=== PATIENT | female | born 1960 ===

== ENCOUNTER 2017-01-19 20:45 | Inpatient (IN) | payer OTHER ==
[~2017-01-19] VITALS: Ht 160 cm; Wt 54.2 kg
[2017-01-19] MEDS ORDERED: SODIUM CHLORIDE 0.9% FLUSH 10 ML FLUSH IV FLUSH PRN (21:00)
[2017-01-19] MEDS ORDERED: SENNOSIDES 8.6 MG TAB PO PRN (21:00)
[2017-01-19] MEDS ORDERED: ACETAMINOPHEN 325 MG TAB PO PRN (21:00)
[2017-01-19] MEDS ORDERED: NALOXONE HCL 0.4 MG/ML AMP IV PRN (21:00)
[2017-01-19] MEDS ORDERED: ONDANSETRON HCL 4 MG/2 ML VIAL IVP PRN (21:00)
[2017-01-19] MEDS: PIPERACIL-TAZO 3.375 GM PREMIX 50 ML IV SCH (21:00)
[2017-01-19] MEDS: SODIUM CHLORIDE 0.9% FLUSH 10 ML FLUSH IV FLUSH SCH (21:00)
[2017-01-19 21:18] VITALS: BP 142/84; PULSE 73; RESP 20; TEMP 97.9; O2SAT 99
[2017-01-19] MEDS ORDERED: CHLORHEXIDINE GLUCONATE 2 % 1 PACK (2 CLOTHS) TOPICAL PRN (23:45)
[2017-01-19] MEDS ORDERED: POVIDONE IODINE 5% (ANTISEPSIS KIT) 4 APPLICATIONS EACH NARE PRN (23:45)
[2017-01-19] MEDS ORDERED: LACTATED RINGER'S 1000 ML IV PRN (23:45)
[2017-01-20] VITALS: BP 133/82; PULSE 70; RESP 20; TEMP 98.2; O2SAT 98
--- NOTE | 2017-01-20 02:15 | HHI.HP ---
[facility]Staff Admission Diagnosis Abdominal mass . Diagnoses: (1) Abdominal mass Chief Complaint: painful abdominal mass Travel History International Travel<30 Days: No Contact w/Intl Traveler <30 Da: No Traveled to Known Affected Are: No History of Present Illness Ms. Pryor is an extremely pleasant 56 year-old patient with no significant medical history who presented to the [place] ER on 01/19/17 with a 3 month history of painful left lower abdominal mass. She had been seen at an urgent care clinic 3 weeks prior and placed on clindamycin with no resolution. The ER physician thought the patient might have an abscess and attempted to I&D it but was unable to get anything more than blood from the mass. He sent for wound culture. The patient was transferred here to [facility] in [place]. A CT of the abdomen/pelvis in [facility] and showed large left inguinal/mons pubis region lobulated mass with concern for neoplasm such as soft tissue sarcoma or metastatic adenopathy. Infectious or inflammatory adenopathy such as lymphoma granuloma venereum is conceivable, according to the radiologist. Findings were thought to not be typical of abscess. Acute abnormality was seen within the abdominal cavity. According to the patient's RN, Dr. Coyle evaluated the patient upon arrival here at [facility]. He had initially planned to perform an I&D in the OR but after seeing the patient and reviewing the abdomen/pelvis CT, he decided the patient should have a biopsy by interventional radiology on Sunday for tissue diagnosis. The patient is seen in her hospital room with her and 2 adult children at the bedside. The patient reports that she has had this mass in her left inguinal area for 3 months. It started out small and has progressively gotten bigger and more painful. The pain became unbearable yesterday and she presented to the emergency room for treatment. She had been placed on antibiotics 3 weeks ago at an urgent care clinic but the mass continued to get progressively larger and more painful despite treatment. There is a family history of sarcoma - the patient's son. She denies any recent fever, chills, cough, chest pain, shortness of breath, nausea, vomiting, diarrhea, dysuria, or hematuria. She denies any recent weight loss or decrease in appetite. She denies any history of hypertension, diabetes mellitus, coronary artery disease, respiratory problems, liver or kidney problems, seizures, thyroid dysfunction, blood clots in her legs or lungs, CVA, or cancer. Review of Systems Except as stated in HPI: all other systems reviewed are Neg Past Family Social History Past Medical History Right shoulder arthritis . Past Surgical History 28 years ago . Reported Medications The patient denies taking any medications. . Allergies: Coded Allergies: No Known Allergies (Unverified , 01/19/17) Active Ordered Medications Current Medications Piperacillin Sod/ Tazobactam Sod (Zosyn 3.375 Gm Premix) 50 ml @ 100 mls/hr Q6H IV ; Start 01/19/17 at 21:00 Sodium Chloride (NS Flush) 2 ml UNSCH PRN IV FLUSH FLUSH AFTER USING IV ACCESS ; Start 01/19/17 at 21:00 Sodium Chloride (NS Flush) 2 ml BID IV FLUSH Last administered on 01/19/17t 21: 00; Start 01/19/17 at 21:00 Acetaminophen (Tylenol) 650 mg Q4H PRN PO TEMP > 100.4; Start 01/19/17 at 21:00 Ondansetron HCl (Zofran Inj) 4 mg Q6H PRN IVP NAUSEA OR VOMITING; Start at 21:00 Sennosides (Senokot) 17.2 mg Q12H PRN PO CONSTIPATION; Start 01/19/17 at 21:00 Naloxone HCl 0.4 mg 0.4 mg UNSCH PRN IV SEE LABEL COMMENTS; Start 01/19/17 at 21:00 Lactated Ringer's (Lr 1000 ml Inj) 1,000 ml @ 30 mls/hr Q24H PRN IV SEE LABEL COMMENTS; Start 01/19/17 at 23:45; Stop 01/22/17 at 23:44 Povidone Iodine (Betadine 5% Antisepsis Kit) 1 applic STRENGTH AND CONDITIONING COACH PRN EACH NARE SEE LABEL COMMENTS; Start 01/19/17 at 23:45; Stop 01/22/17 at 23:44 Chlorhexidine Gluconate (Chlorhexidine 2% Cloth) 3 pack STRENGTH AND CONDITIONING COACH PRN TOPICAL SEE LABEL COMMENTS; Start 01/19/17 at 23:45; Stop 01/22/17 at 23:44 . Family History Mother and father are in their 80s are alive and well with no medical problems Son had sarcoma 5 years ago . Social History Tobacco: Denies Alcohol: Denies Illicit Drugs: Denies . Physical Exam Vital Signs Vital Signs Date Time Temp Pulse Resp B/P Pulse Ox O2 Delivery O2 Flow Rate FiO2 01/20/17 00:00 98.2 70 20 133/82 98 01/19/17 21:18 97.9 73 20 142/84 99 Physical Exam GENERAL: This is a well-nourished, well-developed patient, in no apparent distress. SKIN: No rashes or ecchymoses. Cool and dry. Left lower abdominal mass, firm, baseball-sized, tender to palpation and located in the inguinal region. HEAD: Atraumatic. Normocephalic. EYES: No scleral icterus. No injection or drainage. ENT: Nose without bleeding, purulent drainage. NECK: Trachea midline. No JVD or lymphadenopathy. CARDIOVASCULAR: Regular rate and rhythm without murmurs, gallops, or rubs. RESPIRATORY: Clear to auscultation. Breath sounds equal bilaterally. No wheezes , rales, or rhonchi. GASTROINTESTINAL: Abdomen soft, non-tender, nondistended. No guarding. MUSCULOSKELETAL: Extremities without clubbing, cyanosis, or edema. No calf tenderness. NEUROLOGICAL: Awake and alert. Motor and sensory grossly within normal limits. Normal speech. . Laboratory Brought forward from [place] ER visit dated 01/19/17: Laboratory Tests Test 01/19/17 01/19/17 17:35 18:15 White Blood Count 6.8 TH/MM3 Red Blood Count 4.60 MIL/MM3 Hemoglobin 13.5 GM/DL Hematocrit 39.5 % Mean Corpuscular Volume 85.9 FL Mean Corpuscular Hemoglobin 29.3 PG Mean Corpuscular Hemoglobin 34.2 % Concent Red Cell Distribution Width 12.1 % Platelet Count 333 TH/MM3 Mean Platelet Volume 9.4 FL Neutrophils (%) (Auto) 50.9 % Lymphocytes (%) (Auto) 37.1 % Monocytes (%) (Auto) 7.2 % Eosinophils (%) (Auto) 4.3 % Basophils (%) (Auto) 0.4 % Neutrophils # (Auto) 3.5 TH/MM3 Lymphocytes # (Auto) 2.5 TH/MM3 Monocytes # (Auto) 0.5 TH/MM3 Eosinophils # (Auto) 0.3 TH/MM3 Basophils # (Auto) 0.0 TH/MM3 CBC Comment DIFF FINAL Differential Comment Sodium Level 140 MEQ/L Potassium Level 3.6 MEQ/L Chloride Level 103 MEQ/L Carbon Dioxide Level 28.0 MEQ/L Anion Gap 9 MEQ/L Blood Urea Nitrogen 14 MG/DL Creatinine 0.80 MG/DL Estimat Glomerular Filtration 74 ML/MIN Rate Random Glucose 92 MG/DL Calcium Level 9.2 MG/DL Lactic Acid Level 0.7 mmol/L Imaging Brought forward from [place] ER visit dated 01/19/17: Last Impressions Abdomen/Pelvis CT 01/19/17 0000 Signed Impressions: Service Date/Time: Thursday, January 19, 2017 19:34 - CONCLUSION: Large left inguinal/mons pubis region lobulated mass as above of concern for neoplasm such as soft tissue sarcoma or metastatic adenopathy. Infectious or inflammatory adenopathy such as lymphoma granuloma venereum conceivable. Hematoma considered less likely. Findings are not typical of abscess. No acute abnormality is seen within the abdominal cavity. Bertin Rosenberg MD Assessment and Plan Problem List: (1) Abdominal mass ICD Code: R19.00 Status: Acute Assessment and Plan Abdominal Mass - carcinoma vs hematoma vs abscess - Dr. Coyle consulted - per nursing, he wants IR to do a biopsy on Sunday - Zosyn 3.375 mg IV q6h - patient and family do not want to wait until Sunday in the hospital and are asking if they can go home in the morning; this will need to be discussed with the medical team in the morning - consult case management to assist with discharge planning/medical follow up DVT prophylaxis - SCDs Discussed Condition With Dr. Yulia RN, patient, patient's , and patient's daughter . Physician Certification 2 Midnight Certification Type: Admission for Inpatient Services Order for Inpatient Services The services are ordered in accordance with Medicare regulations or non- Medicare payer requirements, as applicable. In the case of services not specified as inpatient-only, they are appropriately provided as inpatient services in accordance with the 2-midnight benchmark. Estimated LOS (days): 3 days is the estimated time the patient will need to remain in the hospital, assuming treatment plan goals are met and no additional complications. Post-Hospital Plan: Not yet determined Problem Qualifiers (1) Abdominal mass: Qualified Code: R19.04 - Left lower quadrant abdominal mass Marleny Arnett January 20, 2017 02:15 Barb Bender MD January 20, 2017 06:23
[2017-01-20] MEDS: PIPERACIL-TAZO 3.375 GM PREMIX 50 ML IV SCH ×3 (02:44→15:38)
[2017-01-20 04:30] LABS: AUTOMATED NEUTROPHIL # 4.1 TH/MM3 (1.8-7.7); BASOPHIL % 0.4 % (0.0-2.0); EOSINOPHIL # 0.2 TH/MM3 (0-0.4); EOSINOPHIL % 2.8 % (0.0-4.0); HEMATOCRIT 40.4 % (35.0-46.0); HEMO FLAGS DIFF FINAL; LYMPH % 21.2 % (9.0-44.0); LYMPHOCYTE # 1.3 TH/MM3 (1.0-4.8); MEAN CELL VOLUME 85.5 FL (80.0-100.0); MEAN CORPUSCULAR HEMOGLOBIN 28.8 PG (27.0-34.0); MEAN CORPUSCULAR HGB CONC 33.7 % (32.0-36.0); MONO % 8.3 % (0.0-8.0); NEUT % 67.3 % (16.0-70.0); PLATELET COUNT 302 TH/MM3 (150-450); RED BLOOD COUNT 4.72 MIL/MM3 (4.00-5.30); RED CELL DISTRIBUTION WIDTH 12.7 % (11.6-17.2); WHITE BLOOD COUNT 6.2 TH/MM3 (4.0-11.0)
[2017-01-20 05:04] LABS: BICARBONATE 24.9 MEQ/L (21.0-32.0); POTASSIUM 3.2 MEQ/L (3.5-5.1)
[2017-01-20 08:00] VITALS: BP 112/69; PULSE 94; RESP 16; TEMP 98.1; O2SAT 96
[2017-01-20] MEDS ORDERED: NORC5TAB PO (08:31)
[2017-01-20] MEDS: SODIUM CHLORIDE 0.9% FLUSH 10 ML FLUSH IV FLUSH SCH ×2 (08:31→21:05)
--- NOTE | 2017-01-20 08:52 | MB ---
cc: RAY GRHAAM M.D. DATE OF CONSULTATION: 01/19/2017 REASON FOR CONSULTATION "Abscess." HISTORY OF PRESENT ILLNESS The patient is a very pleasant 56-year-old female with a two-month history of progressively increasing pain in the left groin area. This has been slowly increasing in size. PAST MEDICAL HISTORY The patient denies any other medical history. PAST SURGICAL HISTORY x2. SOCIAL HISTORY She drinks an occasional glass of wine, does not smoke or use other substances. ALLERGIES She has no known allergies. MEDICATIONS She is taking no medications. REVIEW OF SYSTEMS The review of systems is negative except for the large swelling over the left lower abdominal skin wall near the groin. PHYSICAL EXAMINATION GENERAL: Physical exam reveals an female in no acute distress. VITAL SIGNS: BP 154/93, pulse 81, respirations 18, temperature 98.3, 100% saturation on room air. HEENT: Sclera anicteric. Pupils reactive. CHEST: Clear to auscultation. CARDIAC: Regular rate and rhythm. ABDOMEN: Soft and nontender. There is an approximately 6-7 cm mass in the left groin area above the groin crease. This is firm, fixed and minimally tender. There is no overlying redness and no fluctuance. EXTREMITIES: Pulses are present throughout. NEUROLOGIC: Nonfocal. LABORATORY WBC is 6.8. Chemistries are essentially within normal limits except for slightly decreased GFR. IMAGING Imaging demonstrates a 4.9 x 6.1 cm mass in the left inguinal and mons pubis region. This appears to be a soft tissue mass, not typical of an abscess. The area was lanced by the physician in the emergency department and the patient and report a small amount of bloody fluid was obtained and no purulence. ASSESSMENT Left groin mass, most likely neoplastic. RECOMMENDATIONS Would recommend core biopsy be obtained before proceeding in case the patient has a sarcoma so as not to violate any tissue planes. Performing any surgery tonight would be hazardous and ill-advised. We will follow with you and after definitive diagnosis is obtained will proceed accordingly. If the patient desires discharge to have work-up as an outpatient, this would be acceptable from a surgical standpoint. MD ABHILASH Marie/SAHARA /12:40 AM /8:40 AM
[2017-01-20 12:00] VITALS: BP 119/69; PULSE 67; RESP 16; TEMP 96; O2SAT 98
--- NOTE | 2017-01-20 15:03 | HHI.PR ---
Subjective Subjective Notes feels fine, wants to shower. Objective Vitals/I&O Vital Signs Date Time Temp Pulse Resp B/P Pulse Ox O2 Delivery O2 Flow Rate FiO2 01/20/17 12:00 96.0 67 16 119/69 98 Labs Laboratory Tests Test 01/20/17 03:01 White Blood Count 6.2 Red Blood Count 4.72 Hemoglobin 13.6 Hematocrit 40.4 Mean Corpuscular Volume 85.5 Mean Corpuscular Hemoglobin 28.8 Mean Corpuscular Hemoglobin 33.7 Concent Red Cell Distribution Width 12.7 Platelet Count 302 Mean Platelet Volume 8.2 Neutrophils (%) (Auto) 67.3 Lymphocytes (%) (Auto) 21.2 Monocytes (%) (Auto) 8.3 Eosinophils (%) (Auto) 2.8 Basophils (%) (Auto) 0.4 Neutrophils # (Auto) 4.1 Lymphocytes # (Auto) 1.3 Monocytes # (Auto) 0.5 Eosinophils # (Auto) 0.2 Basophils # (Auto) 0.0 CBC Comment DIFF FINAL Differential Comment Sodium Level 140 Potassium Level 3.2 Chloride Level 104 Carbon Dioxide Level 24.9 Anion Gap 11 Blood Urea Nitrogen 8 Creatinine 0.73 Estimat Glomerular Filtration 82 Rate Random Glucose 120 Calcium Level 8.9 Narrative Exam palpable firm L groin mass with no erythema. Bandage from outside hospital removed, No drainage, I and D cut clean. bandaid placed. A/P Assessment and Plan L groin solid mass. I ordered US guided core biopsy. OK to shower. Fareed Reyes MD January 20, 2017 15:03
--- NOTE | 2017-01-20 15:48 | EKG ---
Date Performed: 01/19/2017 Time Performed: 23:23:32 PTAGE: 56 years EKG: Sinus rhythm NORMAL ECG NO PREVIOUS TRACING DOCTOR: Sunshine Núñez Interpretating Date/Time 01/20/2017 15:45:57
[2017-01-20 16:00] VITALS: BP 111/75; PULSE 71; RESP 17; TEMP 97.5; O2SAT 96
[2017-01-20 20:00] VITALS: BP 97/66; PULSE 62; RESP 20; TEMP 98.3; O2SAT 98
[2017-01-21] VITALS: BP 94/66; PULSE 67; RESP 20; TEMP 97.6; O2SAT 99
[2017-01-21 08:00] VITALS: BP 110/77; PULSE 62; RESP 16; TEMP 96.9; O2SAT 99
[2017-01-21] MEDS: SODIUM CHLORIDE 0.9% FLUSH 10 ML FLUSH IV FLUSH SCH ×2 (08:15→21:00)
--- NOTE | 2017-01-21 11:10 | HHI.PR ---
Subjective Remarks Follow-up for left groin solid mass. Patient is currently doing well. No fever or chills. Waiting for ultrasound guided biopsy. Objective Vitals Vital Signs Date Time Temp Pulse Resp B/P Pulse Ox O2 Delivery O2 Flow Rate FiO2 01/21/17 08:00 96.9 62 16 110/77 99 01/21/17 00:00 97.6 67 20 94/66 99 01/20/17 20:00 98.3 62 20 97/66 98 01/20/17 16:00 97.5 71 17 111/75 96 01/20/17 12:00 96.0 67 16 119/69 98 I/O 01/20/17 01/20/17 01/20/17 01/21/17 01/21/17 01/21/17 07:00 15:00 23:00 07:00 15:00 23:00 Intake Total 100 ml 240 ml 240 ml 240 ml Output Total 2 ml Balance 100 ml 240 ml 240 ml 238 ml Intake Oral 0 ml 240 ml 240 ml 240 ml IV Total 100 ml Output Urine Total 2 ml # Voids 2 3 3 # Bowel Movements 0 Result Diagram: 01/20/17 0301 01/20/17 0301 Objective Remarks GENERAL: Alert, oriented 3, NAD. SKIN: Warm and dry. HEAD: Normocephalic. EYES: No scleral icterus. No injection or drainage. NECK: Supple, trachea midline. No JVD or lymphadenopathy. CARDIOVASCULAR: Regular rate and rhythm without murmurs, gallops, or rubs. RESPIRATORY: Breath sounds equal bilaterally. No accessory muscle use. GASTROINTESTINAL: Abdomen soft, non-tender, nondistended. Left groin area solid mass palpated, tender to palpation. MUSCULOSKELETAL: No cyanosis, or edema. BACK: Nontender without obvious deformity. No CVA tenderness. Procedures None A/P Problem List: (1) Left groin mass ICD Code: R19.09 Status: Acute Assessment and Plan Ms. Pryor is an extremely pleasant 56 year-old patient with no significant medical history who presented to the [place] ER on 01/19/17 with a 3 month history of painful left lower abdominal mass. She had been seen at an urgent care clinic 3 weeks prior and placed on clindamycin with no resolution. The ER physician thought the patient might have an abscess and attempted to I&D it but was unable to get anything more than blood from the mass. He sent for wound culture. The patient was transferred here to [facility] in [place]. General surgery evaluated patient and ordered US guided core biopsy. - Left groin mass - US guided core biopsy pending. - Acetaminophen, Tramadol PRN for pain. - Patient can likely go home after biopsy. - Will ask CM to look into Patient's assistance - mainly so that patient can follow up. Full code. SCDs. Ambulation. Juan Carroll DO January 21, 2017 11:10 am
[2017-01-21 12:00] VITALS: BP 116/75; PULSE 65; RESP 17; TEMP 96.9; O2SAT 99
[2017-01-21] MEDS ORDERED: traMADol HCL 50 MG TAB PO PRN (12:00)
[2017-01-21 16:00] VITALS: BP 120/80; PULSE 77; RESP 20; TEMP 97.1; O2SAT 100
[2017-01-21 20:00] VITALS: BP 130/80; PULSE 63; RESP 20; TEMP 97.8; O2SAT 98
--- NOTE | 2017-01-21 20:35 | HHI.PR ---
Subjective Subjective Notes No complaints; anxious to get biopsy done Objective Vitals/I&O Vital Signs Date Time Temp Pulse Resp B/P Pulse Ox O2 Delivery O2 Flow Rate FiO2 01/21/17 16:00 97.1 77 20 120/80 100 Lungs: Clear Abdomen: Non-distended, Non-tender Narrative Exam Mass unchanged A/P Problem List: (1) Left groin mass Assessment and Plan Core biopsy tomorrow; will proceed depending on findings. Expect it is neoplastic Umberto Coyle MD January 21, 2017 20:35
[2017-01-22] VITALS (7 sets, daily range): BP systolic 108–128; BP diastolic 74–81; PULSE 16–73; RESP 14–20; TEMP 97.5–99.1; O2SAT 96–99
--- NOTE | 2017-01-22 07:36 | HHI.PR ---
Subjective Remarks In the chair. Says she has no pain at this time and she is able to walk. No fever or chills. No constipation . No abdominal pain. No n/v/d/c. Says she remembers hading hit her groin a while back , however says she did not have any pain and she did not have any bruise at that time. Awaiting for US guided Bx . Objective Vitals Vital Signs Date Time Temp Pulse Resp B/P Pulse Ox O2 Delivery O2 Flow Rate FiO2 01/22/17 00:00 98.0 62 18 126/78 97 01/21/17 20:00 97.8 63 20 130/80 98 01/21/17 16:00 97.1 77 20 120/80 100 01/21/17 12:00 96.9 65 17 116/75 99 01/21/17 08:00 96.9 62 16 110/77 99 I/O 01/21/17 01/21/17 01/21/17 01/22/17 01/22/17 01/22/17 07:00 15:00 23:00 07:00 15:00 23:00 Intake Total 240 ml 980 ml 360 ml 240 ml Output Total 2 ml 400 ml Balance 238 ml 980 ml 360 ml -160 ml Intake Oral 240 ml 980 ml 360 ml 240 ml Output Urine Total 2 ml 400 ml # Voids 5 # Bowel Movements 0 0 Result Diagram: 01/20/17 0301 01/20/17 0301 Imaging Reported Meds & Active Scripts Active [place] (Hydrocodone-Acetaminophen) 5-325 mg Tab 1 Tab PO Q4H PRN Objective Remarks GENERAL: Pleasant 56 yo F, alert, oriented, appears in NAD. SKIN: Warm and dry. HEAD: Normocephalic. EYES: No scleral icterus. No injection or drainage. NECK: Supple, trachea midline. No JVD or lymphadenopathy. CARDIOVASCULAR: Regular rate and rhythm without murmurs, gallops, or rubs. RESPIRATORY: Breath sounds equal bilaterally. No accessory muscle use. GASTROINTESTINAL: Abdomen soft, non-tender, nondistended. Left groin area solid mass on palpation, tender to palpation. MUSCULOSKELETAL: No cyanosis, or edema. BACK: Nontender without obvious deformity. No CVA tenderness. Procedures None A/P Problem List: (1) Left groin mass ICD Code: R19.09 Status: Acute Assessment and Plan Ms. Pryor is an extremely pleasant 56 year-old patient with no significant medical history who presented to the [place] ER on 01/19/17 with a 3 month history of painful left lower abdominal mass. She had been seen at an urgent care clinic 3 weeks prior and placed on clindamycin with no resolution. The ER physician thought the patient might have an abscess and attempted to I&D it but was unable to get anything more than blood from the mass. He sent for wound culture. The patient was transferred here to [facility] in [place]. General surgery evaluated patient and ordered US guided core biopsy. - Left groin mass - US guided core biopsy pending. - Acetaminophen, Tramadol PRN for pain. - Patient can likely go home after biopsy. - Will ask CM to look into Patient's assistance - mainly so that patient can follow up. Full code. SCDs. Ambulation. Lolly Ramirez MD January 22, 2017 07:36
[2017-01-22] MEDS: SODIUM CHLORIDE 0.9% FLUSH 10 ML FLUSH IV FLUSH SCH ×2 (09:26→20:28)
--- NOTE | 2017-01-22 14:21 | RADRPT ---
EXAM DATE/TIME: 01/22/2017 11:42 [place] COMPARISON: CT ABDOMEN & PELVIS W CONTRAST, January 19, 2017, 19:34. INDICATIONS : Left groin mass. MEDICAL HISTORY : Arthritis right shoulder. SURGICAL HISTORY : section. ENCOUNTER: Initial ACUITY: 1 week PAIN SCORE: 0/10 LOCATION: Left groin. ORGAN: Left soft tissue groin mass. SPECIMENS: Four core specimen(s) submitted for pathologic evaluation. DEVICE: 18 gauge Temno needle Post procedure scanning reveals no hematoma or other complication. The possibility does exist that the tissue obtained will be non-diagnostic. If the sample is non-romana gnostic a repeat biopsy or surgical biopsy may need to be performed. TECHNIQUE: 1. Ultrasound guidance for needle biopsy. 2. Needle biopsy. The risks, benefits, and alternatives to ultrasound guided needle biopsy were explained to the patien t in detail including the risk of bleeding and infection. Written and verbal informed consent was ob tained. With the patient on the ultrasound table, images were obtained. Ultrasound imaging documents a heter ogeneous hypoechoic solid appearing mass measuring 5.0 x 4.2 x 5.8 cm. There is internal color-flow d ocumented indicating that it is solid. Overlying skin was prepped and draped in the usual sterile fas hion and Lidocaine was utilized as a local anesthetic. A needle was advanced into the identified target and the number of specimens as above obtained and meier bmitted for pathologic evaluation. The patient tolerated the procedure well and left the ultrasound suite in stable condition. CONCLUSION: Uncomplicated ultrasound guided needle biopsy of the left inguinal mass. Bertin Franco MD on January 22, 2017 at 14:19 Board Certified Radiologist. This report was verified electronically.
[2017-01-22] MEDS ORDERED: LIDOCAINE HCL 1% PF 30 ML VIAL ONE (14:58)
[2017-01-23] VITALS: BP 130/81; PULSE 72; RESP 20; TEMP 97.4; O2SAT 97
[2017-01-23 08:00] VITALS: BP 110/79; PULSE 76; RESP 16; TEMP 98.2; O2SAT 97
[2017-01-23] MEDS: SODIUM CHLORIDE 0.9% FLUSH 10 ML FLUSH IV FLUSH SCH ×2 (09:00→19:56)
--- NOTE | 2017-01-23 10:44 | HHI.PR ---
Subjective Remarks Follow-up left groin mass 01/23/17-patient seen and examined, Reports some moderate pain to the left groin area. Currently afebrile. Biopsy report pending. Patient reported a family history of bone cancer as her son 5 years ago at age 21. Discussed with TUAN Aj Objective Vitals Vital Signs Date Time Temp Pulse Resp B/P Pulse Ox O2 Delivery O2 Flow Rate FiO2 01/23/17 08:00 98.2 76 16 110/79 97 01/23/17 00:00 97.4 72 20 130/81 97 01/22/17 20:00 98.2 66 20 128/74 98 01/22/17 16:00 99.1 73 16 108/74 96 01/22/17 13:02 97.5 64 14 109/74 99 01/22/17 12:50 97.5 64 14 118/80 98 01/22/17 11:30 98.7 70 14 126/81 I/O 01/22/17 01/22/17 01/22/17 01/23/17 01/23/17 01/23/17 07:00 15:00 23:00 07:00 15:00 23:00 Intake Total 240 ml 250 ml 390 ml 220 ml Output Total 400 ml 600 ml 500 ml Balance -160 ml 250 ml -210 ml -280 ml Intake Oral 240 ml 250 ml 390 ml 220 ml Output Urine Total 400 ml 600 ml 500 ml # Bowel Movements 0 0 0 Result Diagram: 01/20/17 0301 01/20/17 0301 Imaging Last Impressions Soft Tissue Biopsy 01/22/17 0000 Signed Impressions: Service Date/Time: Sunday, January 22, 2017 11:42 - CONCLUSION: Uncomplicated ultrasound guided needle biopsy of the left inguinal mass. Bertin Franco MD Objective Remarks GENERAL: NAD SKIN: Warm and dry. HEAD: Normocephalic. EYES: No scleral icterus. No injection or drainage. NECK: Supple, trachea midline. No JVD or lymphadenopathy. CARDIOVASCULAR: Regular rate and rhythm without murmurs, gallops, or rubs. RESPIRATORY: Breath sounds equal bilaterally. No accessory muscle use. GASTROINTESTINAL: Abdomen soft, non-tender, nondistended. MUSCULOSKELETAL: No cyanosis, or edema. BACK: Nontender without obvious deformity. No CVA tenderness. Procedures None A/P Problem List: (1) Left groin mass ICD Code: R19.09 Status: Acute Assessment and Plan 56-year-old female with Left groin/inguinal mass Status post ultrasound guided needle biopsy of the left inguinal mass 01/22/17 pending biopsy report Plan for excisional of groin left mass 01/25/17 by general surgery Continue current pain management with IV morphine BKP and Toradol by mouth when necessary DVT prophylaxis: Encourage ablation Zackery Rose MD January 23, 2017 10:44
[2017-01-23] MEDS ORDERED: MORPHINE SULFATE 4 MG/ML INJ IV PUSH PRN (10:45)
--- NOTE | 2017-01-23 11:50 | HHI.PR ---
Subjective Subjective Notes Resting in bed Pain controlled Tolerating regular diet Objective Vitals/I&O Vital Signs Date Time Temp Pulse Resp B/P Pulse Ox O2 Delivery O2 Flow Rate FiO2 01/23/17 08:00 98.2 76 16 110/79 97 Cardiovascular: Regular Lungs: Clear Abdomen: Non-distended, Non-tender Extremities: No edema Narrative Exam LEFT groin---bandage in place s/p bx; large palpable mass A/P Problem List: (1) Left groin mass Assessment and Plan 56 year old female with large palpable groin mass -S/p US guided biopsy -Await pathology results for further plans -Diet as tolerate -OOB and mobilize Attending Note - Dr. Coyle Plan for excision; preliminary results not consistent with lymphoma or melanoma The exam, history, and the medical decision-making described in the above note were completed with the assistance of the mid-level provider. I reviewed and agree with the findings presented. I attest that I had a [id number] encounter with the patient on the same day, and personally performed and documented my assessment and findings in the medical record. Mami Santana January 23, 2017 11:50 Umberto Coyle MD January 25, 2017 17:32
[2017-01-23 12:00] VITALS: BP 109/71; PULSE 70; RESP 16; TEMP 97.7; O2SAT 99
[2017-01-23 16:00] VITALS: BP 111/79; PULSE 76; RESP 16; TEMP 97.1; O2SAT 98
[2017-01-23 20:00] VITALS: BP 107/69; PULSE 74; RESP 20; TEMP 97.1; O2SAT 98
[2017-01-24] VITALS: BP 110/75; PULSE 85; RESP 20; TEMP 97.1; O2SAT 97
[2017-01-24 08:00] VITALS: BP 106/70; PULSE 74; RESP 16; TEMP 98.5; O2SAT 95
[2017-01-24] MEDS: SODIUM CHLORIDE 0.9% FLUSH 10 ML FLUSH IV FLUSH SCH ×2 (08:41→21:43)
--- NOTE | 2017-01-24 09:28 | HHI.PR ---
Subjective Remarks Follow-up left groin mass 01/23/17-patient seen and examined, Reports some moderate pain to the left groin area. Currently afebrile. Biopsy report pending. Patient reported a family history of bone cancer as her son 5 years ago at age 21. Discussed with TUAN Aj 01/24/17-patient seen and examined, continue to have some moderate pain left groin area. Patient declines to have CT thorax/chest Objective Vitals Vital Signs Date Time Temp Pulse Resp B/P Pulse Ox O2 Delivery O2 Flow Rate FiO2 01/24/17 08:00 98.5 74 16 106/70 95 01/24/17 00:00 97.1 85 20 110/75 97 01/23/17 20:00 97.1 74 20 107/69 98 01/23/17 16:00 97.1 76 16 111/79 98 01/23/17 12:00 97.7 70 16 109/71 99 I/O 01/23/17 01/23/17 01/23/17 01/24/17 01/24/17 01/24/17 07:00 15:00 23:00 07:00 15:00 23:00 Intake Total 220 ml 1440 ml 720 ml 720 ml Output Total 500 ml Balance -280 ml 1440 ml 720 ml 720 ml Intake Oral 220 ml 1440 ml 720 ml 720 ml Output Urine Total 500 ml # Voids 4 2 3 # Bowel Movements 0 0 1 Result Diagram: 01/20/17 0301 01/20/17 0301 Objective Remarks GENERAL: NAD SKIN: Warm and dry. HEAD: Normocephalic. EYES: No scleral icterus. No injection or drainage. NECK: Supple, trachea midline. No JVD or lymphadenopathy. CARDIOVASCULAR: Regular rate and rhythm without murmurs, gallops, or rubs. RESPIRATORY: Breath sounds equal bilaterally. No accessory muscle use. GASTROINTESTINAL: Abdomen soft, non-tender, nondistended. MUSCULOSKELETAL: No cyanosis, or edema. BACK: Nontender without obvious deformity. No CVA tenderness. Procedures None A/P Problem List: (1) Left groin mass ICD Code: R19.09 Status: Acute Assessment and Plan 56-year-old female with Left groin/inguinal mass Status post ultrasound guided needle biopsy of the left inguinal mass 01/22/17 pending biopsy report Plan for excisional of groin left mass possible 01/25/17 by general surgery Continue current pain management with IV morphine BKP and Toradol by mouth when necessary Will discontinue order for CT thorax/chest as patient does not want it done DVT prophylaxis: Encourage ablation Zackery Rose MD January 24, 2017 09:28
[2017-01-24 12:00] VITALS: BP 121/79; PULSE 71; RESP 18; TEMP 97.3; O2SAT 99
--- NOTE | 2017-01-24 12:50 | HHI.PR ---
Subjective Subjective Notes Resting in bed Patient does not want CT Chest done---she just wants to focus on the LEFT groin issue Objective Vitals/I&O Vital Signs Date Time Temp Pulse Resp B/P Pulse Ox O2 Delivery O2 Flow Rate FiO2 01/24/17 12:00 97.3 71 18 121/79 99 Cardiovascular: Regular Lungs: Clear Abdomen: Other (see below ) Extremities: No edema Narrative Exam LEFT groin---bandage in place s/p bx; large palpable mass A/P Problem List: (1) Left groin mass Assessment and Plan 56 year old female with large palpable groin mass -S/p US guided biopsy -Await pathology results -Plan for OR tomorrow for excision of 6cm groin mass with Dr. Coyle -Diet as tolerate -OOB and mobilize -I personally explained the reasoning behind CT chest but patient would only like to focus on LEFT groin for now Attending Note - Dr. Coyle As above Discussed in detail with patient; they are ok with CXR The exam, history, and the medical decision-making described in the above note were completed with the assistance of the mid-level provider. I reviewed and agree with the findings presented. I attest that I had a [id number] encounter with the patient on the same day, and personally performed and documented my assessment and findings in the medical record. Mami Santana January 24, 2017 12:50 Umberto Coyle MD January 25, 2017 17:32
[2017-01-24 16:00] VITALS: BP 117/87; PULSE 104; RESP 20; TEMP 98.7; O2SAT 97
[2017-01-24 20:00] VITALS: BP 141/87; PULSE 94; RESP 16; TEMP 98.2; O2SAT 97
[2017-01-25] VITALS: BP 135/87; PULSE 75; RESP 16; TEMP 97.2; O2SAT 100
[2017-01-25 08:00] VITALS: BP 107/67; PULSE 64; RESP 14; TEMP 97; O2SAT 98
--- NOTE | 2017-01-25 09:10 | HHI.PR ---
Subjective Remarks Follow-up left groin mass 01/23/17-patient seen and examined, Reports some moderate pain to the left groin area. Currently afebrile. Biopsy report pending. Patient reported a family history of bone cancer as her son 5 years ago at age 21. Discussed with TUAN Aj 01/24/17-patient seen and examined, continue to have some moderate pain left groin area. Patient declines to have CT thorax/chest 01/25/17-patient seen and examined, biopsy report discussed with patient and now she is willing to have CT thorax/chest. Currently nothing by mouth Objective Vitals Vital Signs Date Time Temp Pulse Resp B/P Pulse Ox O2 Delivery O2 Flow Rate FiO2 01/25/17 08:00 97.0 64 14 107/67 98 01/25/17 00:00 97.2 75 16 135/87 100 01/24/17 20:00 98.2 94 16 141/87 97 01/24/17 16:00 98.7 104 20 117/87 97 01/24/17 12:00 97.3 71 18 121/79 99 I/O 01/24/17 01/24/17 01/24/17 01/25/17 01/25/17 01/25/17 07:00 15:00 23:00 07:00 15:00 23:00 Intake Total 720 ml 600 ml 240 ml 240 ml Balance 720 ml 600 ml 240 ml 240 ml Intake Oral 720 ml 600 ml 240 ml 240 ml IV Total 0 ml 0 ml # Voids 3 4 2 3 # Bowel Movements 1 0 0 Imaging Last Impressions Soft Tissue Biopsy 01/22/17 0000 Signed Impressions: Service Date/Time: Sunday, January 22, 2017 11:42 - CONCLUSION: Uncomplicated ultrasound guided needle biopsy of the left inguinal mass. Bertin Franco MD Objective Remarks GENERAL: NAD SKIN: Warm and dry. HEAD: Normocephalic. EYES: No scleral icterus. No injection or drainage. NECK: Supple, trachea midline. No JVD or lymphadenopathy. CARDIOVASCULAR: Regular rate and rhythm without murmurs, gallops, or rubs. RESPIRATORY: Breath sounds equal bilaterally. No accessory muscle use. GASTROINTESTINAL: Abdomen soft, non-tender, nondistended. MUSCULOSKELETAL: No cyanosis, or edema. BACK: Nontender without obvious deformity. No CVA tenderness. Procedures None A/P Problem List: (1) Left groin mass ICD Code: R19.09 Status: Acute (2) Neuroendocrine carcinoma, high grade ICD Code: C7A.1 Status: Acute Assessment and Plan 56-year-old female with Left groin/inguinal mass Neuroendocrine carcinoma, high-grade Status post ultrasound guided needle biopsy of the left inguinal mass 01/22/17 with biopsy report high-grade malignant neoplasm with neuroendocrine features Plan for excisional of groin left mass today 01/25/17 by general surgery Continue current pain management with IV morphine BKP and Toradol by mouth when necessary We'll order CT thorax/chest as well as CT abdomen/pelvics after today's procedure Consult oncology. DVT prophylaxis: Encourage ablation Zackery Rose MD January 25, 2017 09:09
[2017-01-25] MEDS: SODIUM CHLORIDE 0.9% FLUSH 10 ML FLUSH IV FLUSH SCH ×2 (09:13→20:43)
[2017-01-25] MEDS ORDERED: ceFAZolin INJ 1,000 MG VIAL ONE (10:51)
[2017-01-25] MEDS ORDERED: BUPIVACAINE/EPINEPHRINE 0.25% 50 ML VIAL ONE (10:53)
[2017-01-25] MEDS ORDERED: LIDOCAINE 1%/EPINEPHrine 1:100,000 SOLN 50 ML VIAL ONE (10:59)
[2017-01-25] MEDS ORDERED: ONDANSETRON HCL 4 MG/2 ML VIAL IV PUSH ONE (12:00)
[2017-01-25] MEDS ORDERED: PROPOFOL 200 MG/20 ML AMP IV ONE (12:00)
[2017-01-25] MEDS ORDERED: BUPIVACAINE/EPINEPHRINE 0.25% PF 30 ML VIAL INFIL ONE (12:00)
[2017-01-25] MEDS ORDERED: ACETAMINOPHEN 1000 MG/100 ML VIAL IV ONE (12:36)
[2017-01-25] MEDS ORDERED: MIDAZOLAM HCL 2 MG/2 ML VIAL ONE (13:33)
[2017-01-25] MEDS ORDERED: fentaNYL CITRATE 250 MCG/5 ML AMP ONE (13:33)
[2017-01-25 16:00] VITALS: BP 102/65; PULSE 69; RESP 16; TEMP 96.6; O2SAT 96
--- NOTE | 2017-01-25 16:49 | HHI.PR ---
cc: Umberto Coyle MD Immediate Post Op Note Procedure Date: January 25, 2017 Pre Op Diagnosis: Left groin mass Post Op Diagnosis: Same Surgeon: Umberto Coyle Skoog Patching Machine Operator(s): Donald Jones MD Procedure: Excision 5.5 x 7.5 mass Left groin Findings: Extraperitoneal mass Complications: None Specimen(s) removed: Mass to pathology Estimated blood loss: <30 ml Anesthesia: LMA Drains: None IVF (650 ml) Patient to: PACU Patient Condition: Good Date/Time of Procedure: SEE SURGICAL CARE RECORD Umberto Coyle MD January 25, 2017 16:49
[2017-01-25 20:00] VITALS: BP 101/65; PULSE 69; RESP 16; TEMP 97.6; O2SAT 98
[2017-01-26] VITALS: BP 117/76; PULSE 70; RESP 16; TEMP 97.8; O2SAT 95
[2017-01-26 04:00] VITALS: BP 101/64; PULSE 73; RESP 16; TEMP 98.7; O2SAT 97
[2017-01-26 08:00] VITALS: BP 92/54; PULSE 79; RESP 19; TEMP 97.7; O2SAT 95
--- NOTE | 2017-01-26 08:33 | MP ---
cc: RAY COYLE M.D. DATE OF SURGERY 01/25/2017 PROCEDURE Excision 5.5 x 7.5 cm left groin soft tissue mass. PREOPERATIVE DIAGNOSIS Soft tissue mass, symptomatic left groin. POSTOPERATIVE DIAGNOSIS Soft tissue mass, symptomatic left groin. ANESTHESIA LMA SURGEON Ray Coyle MD LIAISON PLANNER Zackery Jones MD ESTIMATED BLOOD LOSS 30 mL FLUIDS 650 mL Crystalloid COMPLICATIONS None DRAINS None SPECIMEN Left groin mass to pathology. PROCEDURE IN DETAIL The patient was taken to the operating room after marking the correct site and having this confirmed by the patient. She was placed on the operating room table in the supine position. She underwent laryngeal mask anesthesia. The left groin was shaved, prepped and draped. Time out was taken confirming the correct patient, site and procedure to be performed. The skin and subcutaneous tissue was infiltrated with local anesthetic and an elliptical incision made including the patient's previous biopsy site and all ecchymotic tissue. Dissection was carried out around the mass which was seen to be extraperitoneal. The external oblique fascia was utilized as the deep margin and the tumor was able to be pealed easily off of this. Electrocautery and clamping and ligation with silk suture was accomplished to completely excise the tumor from all bloody supply. No blood vessels were involved with the tumor. The specimen was completely excised off of the fascia and the specimen was oriented with silk sutures and passed off the table. The cavity was re-examined and seen to be hemostatic. The space was closed in two layers with interrupted 3-0 and 2-0 Vicryl suture. The skin was closed with 5-0 PDS in a running subcuticular fashion. The wound was dressed with Steri-Strips and 4 x 4's. The patient was extubated and taken back to the Recovery Room in stable condition. Sponge, needle and instrument counts were reported to be correct. MD ABHILASH Marie/DJL /4:54 PM /8:31 AM
[2017-01-26] MEDS: SODIUM CHLORIDE 0.9% FLUSH 10 ML FLUSH IV FLUSH SCH (09:15)
--- NOTE | 2017-01-26 10:13 | HHI.PR ---
Subjective Remarks Follow-up left groin mass 01/23/17-patient seen and examined, Reports some moderate pain to the left groin area. Currently afebrile. Biopsy report pending. Patient reported a family history of bone cancer as her son 5 years ago at age 21. Discussed with TUAN Aj 01/24/17-patient seen and examined, continue to have some moderate pain left groin area. Patient declines to have CT thorax/chest 01/25/17-patient seen and examined, biopsy report discussed with patient and now she is willing to have CT thorax/chest. Currently nothing by mouth 01/26/17-patient seen and examined, she status post Excision 5.5 x 7.5 mass Left groin. Patient is now refusing to have CT thorax performed. Objective Vitals Vital Signs Date Time Temp Pulse Resp B/P Pulse Ox O2 Delivery O2 Flow Rate FiO2 01/26/17 08:00 97.7 79 19 92/54 95 01/26/17 04:00 98.7 73 16 101/64 97 01/26/17 00:00 97.8 70 16 117/76 95 01/25/17 20:00 97.6 69 16 101/65 98 01/25/17 16:00 96.6 69 16 102/65 96 01/25/17 14:15 98.6 66 13 124/79 98 Room Air 01/25/17 14:00 63 12 114/70 100 Room Air 01/25/17 13:45 64 10 118/72 99 Nasal Cannula 2 01/25/17 13:30 67 10 107/69 97 Nasal Cannula 2 01/25/17 13:28 Nasal Cannula 2 01/25/17 13:24 98.7 65 10 102/65 94 Nasal Cannula 4 I/O 01/25/17 01/25/17 01/25/17 01/26/17 01/26/17 01/26/17 07:00 15:00 23:00 07:00 15:00 23:00 Intake Total 240 ml 750 ml 360 ml 240 ml 240 ml Output Total 30 ml Balance 240 ml 720 ml 360 ml 240 ml 240 ml Intake Oral 240 ml 0 ml 360 ml 240 ml 240 ml IV Total 0 ml 50 ml 0 ml 0 ml Other 700 ml Estimated Blood Loss 30 ml # Voids 3 4 2 2 # Bowel Movements 0 1 0 0 Objective Remarks GENERAL: NAD SKIN: Warm and dry. HEAD: Normocephalic. EYES: No scleral icterus. No injection or drainage. NECK: Supple, trachea midline. No JVD or lymphadenopathy. CARDIOVASCULAR: Regular rate and rhythm without murmurs, gallops, or rubs. RESPIRATORY: Breath sounds equal bilaterally. No accessory muscle use. GASTROINTESTINAL: Abdomen soft, non-tender, nondistended. MUSCULOSKELETAL: No cyanosis, or edema. : dressing over left groin area s/p Excision 5.5 x 7.5 mass Left groin BACK: Nontender without obvious deformity. No CVA tenderness. Procedures Excision 5.5 x 7.5 mass Left groin 01/25/17 A/P Problem List: (1) Left groin mass ICD Code: R19.09 Status: Acute (2) Neuroendocrine carcinoma, high grade ICD Code: C7A.1 Status: Acute Assessment and Plan 56-year-old female with Left groin/inguinal mass Neuroendocrine carcinoma, high-grade Status post ultrasound guided needle biopsy of the left inguinal mass 01/22/17 with biopsy report high-grade malignant neoplasm with neuroendocrine features Status post Excision 5.5 x 7.5 mass Left groin 01/25/17 appreciate input from general surgery Continue current pain management with IV morphine BKP and Toradol by mouth when necessary Patient again declined CT thorax/chest as well as CT abdomen/pelvics DVT prophylaxis: Encourage ablation Zackery Rose MD January 26, 2017 10:13
[2017-01-26] MEDS ORDERED: PERI8.6T PO (10:16)
--- NOTE | 2017-01-26 10:18 | HHI.DS ---
Discharge Summary Admission Date January 19, 2017 at 21:00 Discharge Date: January 26, 2017 Admitting Diagnosis Abdominal mass . (1) Left groin mass ICD Code: R19.09 (2) Neuroendocrine carcinoma, high grade ICD Code: C7A.1 Procedures Excision 5.5 x 7.5 mass Left groin 01/25/17 Brief History - From Admission Ms. Pryor is an extremely pleasant 56 year-old patient with no significant medical history who presented to the [facility] on 01/19/17 with a 3 month history of painful left lower abdominal mass. She had been seen at an urgent care clinic 3 weeks prior and placed on clindamycin with no resolution. The ER physician thought the patient might have an abscess and attempted to I&D it but was unable to get anything more than blood from the mass. He sent for wound culture. The patient was transferred here to [facility] in [place]. A CT of the abdomen/pelvis in [facility] and showed large left inguinal/mons pubis region lobulated mass with concern for neoplasm such as soft tissue sarcoma or metastatic adenopathy. Infectious or inflammatory adenopathy such as lymphoma granuloma venereum is conceivable, according to the radiologist. Findings were thought to not be typical of abscess. Acute abnormality was seen within the abdominal cavity. According to the patient's RN, Dr. Coyle evaluated the patient upon arrival here at [facility]. He had initially planned to perform an I&D in the OR but after seeing the patient and reviewing the abdomen/pelvis CT, he decided the patient should have a biopsy by interventional radiology on Sunday for tissue diagnosis. The patient is seen in her hospital room with her and 2 adult children at the bedside. The patient reports that she has had this mass in her left inguinal area for 3 months. It started out small and has progressively gotten bigger and more painful. The pain became unbearable yesterday and she presented to the emergency room for treatment. She had been placed on antibiotics 3 weeks ago at an urgent care clinic but the mass continued to get progressively larger and more painful despite treatment. There is a family history of sarcoma - the patient's son. She denies any recent fever, chills, cough, chest pain, shortness of breath, nausea, vomiting, diarrhea, dysuria, or hematuria. She denies any recent weight loss or decrease in appetite. She denies any history of hypertension, diabetes mellitus, coronary artery disease, respiratory problems, liver or kidney problems, seizures, thyroid dysfunction, blood clots in her legs or lungs, CVA, or cancer. PE at Discharge GENERAL: NAD SKIN: Warm and dry. HEAD: Normocephalic. EYES: No scleral icterus. No injection or drainage. NECK: Supple, trachea midline. No JVD or lymphadenopathy. CARDIOVASCULAR: Regular rate and rhythm without murmurs, gallops, or rubs. RESPIRATORY: Breath sounds equal bilaterally. No accessory muscle use. GASTROINTESTINAL: Abdomen soft, non-tender, nondistended. MUSCULOSKELETAL: No cyanosis, or edema. : dressing over left groin area s/p Excision 5.5 x 7.5 mass Left groin BACK: Nontender without obvious deformity. No CVA tenderness. Hospital Course Left groin/inguinal mass Neuroendocrine carcinoma, high-grade Status post ultrasound guided needle biopsy of the left inguinal mass 01/22/17 with biopsy report high-grade malignant neoplasm with neuroendocrine features Status post Excision 5.5 x 7.5 mass Left groin 01/25/17 by general surgery Pain control was achieved with IV morphine BKP and Toradol by mouth when necessary Patient again declined CT thorax/chest as well as CT abdomen/pelvics DVT prophylaxis: Encourage ambulation Pt Condition on Discharge: Stable Discharge Disposition: Discharge Home Discharge Time: <= 30 minutes Discharge Instructions DIET: Follow Instructions for: Heart Healthy Diet Activities you can perform: Regular-No Restrictions Follow up Referrals: PCP Follow-up - 1 Week Surgical New Medications: Hydrocodone-Acetaminophen ([place]) 5-325 mg Tab 1 TAB PO Q4H PRN PAIN #20 Ref 0 TAB Sennosides-Docusate Sodium ([place]) 8.6-50 Mg Tab 1 TAB PO BID PRN Constipation #20 Ref 0 TAB Zackery Rose MD January 26, 2017 10:18
[2017-01-26 12:00] VITALS: BP 111/74; PULSE 71; RESP 18; TEMP 97.4; O2SAT 98
== END 2017-01-26 14:22 | disposition home or self-care (01) | DRG 828 ==
LOC: HOR 20:45 → N07B 21:00
PROVIDERS: ADMIT Hospitalist; ATTEND Hospitalist
PROC: 0YB63ZX Excision of Left Inguinal Region, Percutaneous Approach, Diagnostic (ICD-10-PCS; principal; 2017-01-22)
PROC: 0YB60ZX Excision of Left Inguinal Region, Open Approach, Diagnostic (ICD-10-PCS; 2017-01-25)
DX: C7A.1 Malignant poorly differentiated neuroendocrine tumors (principal); M19.011 Primary osteoarthritis, right shoulder; Z80.8 Family history of malignant neoplasm of other organs or systems
CPT/HCPCS: 10060; 20206; 74177; 76942; 80048; 83605; 85025; 86403; 87040; 87070; 87205; 88305; 88341; 88342; 93005; 99281; J0131; J0690; J2250; J2405; J2543; J3010; J3370; J7050; Q9963; Q9967

== ENCOUNTER 2017-06-27 10:10 | Inpatient (IN) | payer OTHER ==
[~2017-06-27] VITALS: Ht 157.5 cm; Wt 68.3 kg
[~2017-06-27 10:10] MED LIST: NORC5TAB PO; PERI8.6T PO
[2017-06-27 10:11] VITALS: BP 159/86; PULSE 75; RESP 18; TEMP 98.7; O2SAT 100
[2017-06-27 12:09] LABS: AUTOMATED NEUTROPHIL # 4.4 TH/MM3 (1.8-7.7); BASOPHIL % 0.7 % (0.0-2.0); EOSINOPHIL # 0.1 TH/MM3 (0-0.4); HEMATOCRIT 38.3 % (35.0-46.0); HEMO FLAGS DIFF FINAL; LYMPH % 25.6 % (9.0-44.0); LYMPHOCYTE # 1.7 TH/MM3 (1.0-4.8); MEAN CELL VOLUME 88.4 FL (80.0-100.0); MEAN CORPUSCULAR HGB CONC 35.1 % (32.0-36.0); MONO % 6.5 % (0.0-8.0); NEUT % 65.2 % (16.0-70.0); PLATELET COUNT 321 TH/MM3 (150-450); RED BLOOD COUNT 4.33 MIL/MM3 (4.00-5.30); WHITE BLOOD COUNT 6.7 TH/MM3 (4.0-11.0)
[2017-06-27 12:21] LABS: APTT (PATIENT) 26.4 SEC (24.3-30.1); PROTHROMBIN TIME - PATIENT 10.6 SEC (9.8-11.6)
[2017-06-27 12:28] LABS: BICARBONATE 25.8 MEQ/L (21.0-32.0); POTASSIUM 3.9 MEQ/L (3.5-5.1)
[2017-06-27] MEDS ORDERED: IOHEXOL 350 MG/ML 10 ML VIAL (for RAD DIAG) IVCONTRAST ONE (12:39)
--- NOTE | 2017-06-27 12:57 | RADRPT ---
EXAM DATE/TIME: 06/27/2017 12:24 [facility] COMPARISON: CT ABDOMEN & PELVIS W CONTRAST, January 19, 2017, 19:34. INDICATIONS : Lower pelvic pain. IV CONTRAST: 65 cc Omnipaque 350 (iohexol) IV ORAL CONTRAST: No oral contrast ingested. RADIATION DOSE: 7.6 CTDIvol (mGy) MEDICAL HISTORY : None SURGICAL HISTORY : section. cancerous mass removed. ENCOUNTER: Initial ACUITY: 2 months PAIN SCALE: 7/10 LOCATION: lower quadrant abdomen TECHNIQUE: Volumetric scanning of the abdomen and pelvis was performed. Using automated exposure control and ad justment of the mA and/or kV according to patient size, radiation dose was kept as low as reasonably achievable to obtain optimal diagnostic quality images. DICOM format image data is available electro nically for review and comparison. FINDINGS: LOWER LUNGS: The visualized lower lungs are clear. LIVER: Punctate hypodensities in the hepatic dome and right hepatic lobe are unchanged and likely represent benign cysts. There is no dilation of the biliary tree. No calcified gallstones. SPLEEN: Normal size without lesion. PANCREAS: Within normal limits. KIDNEYS: Normal in size and shape. Small bilateral renal cortical cysts. Nonobstructing 5 mm calculus in the u pper-mid pole collecting system of the right kidney. ADRENAL GLANDS: Within normal limits. VASCULAR: There is no aortic aneurysm. BOWEL/MESENTERY: The stomach, small bowel, and colon demonstrate no acute abnormality. There is no free intraperitone al air or fluid. ABDOMINAL WALL: Within normal limits. RETROPERITONEUM: There is no lymphadenopathy. BLADDER: No wall thickening or mass. REPRODUCTIVE: Within normal limits. INGUINAL: On the prior study, there was a single, 6.1 x 4.9 cm soft tissue mass lesion projecting over the left pubic bone in the regional soft tissues of the mons pubis. There are now multiple lesions in this re gion with a total diameter of approximately 14.2 cm in the oblique transverse. Nodules extend into th e left vaginal labia. MUSCULOSKELETAL: Within normal limits for patient age. CONCLUSION: 1. Nodules in the subcutaneous tissues of the lower abdomen/mons pubis region show marked increase in both size and number with extension into the left vaginal labia. Findings are very concerning for a worsening neoplastic process such as sarcoma. 2. Despite the extensive local disease, he did not see evidence of metastasis. 3. Stable renal and hepatic cysts. 5 mm nonobstructing calculus at the junction of the upper and mid pole collecting system of the right kidney. Dimitris Moya MD on June 27, 2017 at 12:48 Board Certified Radiologist. This report was verified electronically.
[2017-06-27] MEDS ORDERED: ePHEDrine/NS 25 MG/5 ML SYR IV ONE (13:15)
[2017-06-27] MEDS ORDERED: NEOSTIGMINE 3 MG/3 ML SYR IV ONE (13:15)
[2017-06-27] MEDS ORDERED: PROPOFOL 200 MG/20 ML AMP IV ONE (13:15)
[2017-06-27] MEDS ORDERED: PHENYLEPH/NS 1000 MCG/10 ML SYR IV ONE (13:15)
[2017-06-27] MEDS ORDERED: GLYCOPYRROLATE 1 MG/5 ML SYRINGE IV PUSH ONE (13:15)
[2017-06-27] MEDS ORDERED: LACTATED RINGER'S 1000 ML INJ 2,000 ML IV ONE (13:15)
[2017-06-27] MEDS ORDERED: ONDANSETRON HCL 4 MG/2 ML VIAL IV PUSH ONE (13:15)
[2017-06-27] MEDS ORDERED: LIDOCAINE HCL 1% PF 5 ML AMPULE OTHER ONE (13:18)
[2017-06-27] MEDS ORDERED: ROCURONIUM INJ 50 MG/5 ML SYRINGE IV PUSH ONE (13:18)
--- NOTE | 2017-06-27 14:07 | PD ---
HPI Chief Complaint: Skin Problem Time Seen by Provider: 10:40 Travel History International Travel<30 days: No Contact w/Intl Traveler<30days: No Traveled to known affect area: No History of Present Illness HPI PATIENT HAS A PREVIOUS HISTORY OF A TUMOR THAT WAS RESECTED BY DR COYLE ABOUT 2 MONTHS AGO, THEN FOLLOWED UP AND APPARENTLY RECURRED AND SEEN OUTPATIENT AND HAD DRAINED AND THOUGHT TO BE A HEMATOMA. NOW OVER THE LAST MONTH THE MASSES HAVE REGROWN AND ITS MORE PAINFUL NOW. BACK IN JANUARY OR FEBRUARY BIOPSY C/W HIGH GRADE MALIGNANT NEOPLASM WITH ENDOCRINE PATIENT TODAY C/O INCREASING WORSENING PAIN, 04/12 PAIN/ NONRADIATING, NO SOB/MEEK/ ABD PAIN/, DENIES FEVER, WORSENED BY WALKING AND TOUCHING, NOT ALLEVIATED BY ANYTHING. PFSH Past Medical History Arthritis: Yes (Right Shoulder) Autoimmune Disease: No Anxiety: No Depression: No Cancer: Yes (pt states that cancerous mass was removed in 01/2017) Cardiovascular Problems: No Diminished Hearing: No Endocrine: No Genitourinary: No Immune Disorder: No Musculoskeletal: Yes Neurologic: No Psychiatric: No Reproductive: No Respiratory: No Tetanus Vaccination: Unknown Influenza Vaccination: No : 2 Para: 2 Past Surgical History Abdominal Surgery: Yes (mass removed from LLQ abd) Section: Yes (2) Ear Surgery: No Endocrine Surgery: No Eye Surgery: No Genitourinary Surgery: No Gynecologic Surgery: Yes ( 28 years ago) Oral Surgery: No Thoracic Surgery: No Social History Alcohol Use: Yes (wine occ) Tobacco Use: No Substance Use: No Allergies-Medications (Allergen,Severity, Reaction): Coded Allergies: No Known Allergies (Unverified , 06/27/17) Reported Meds & Prescriptions Reported Meds & Active Scripts Active Review of Systems Except as stated in HPI: all other systems reviewed are Neg General / Constitutional: No: Fever Eyes: No: Visual changes HENT: No: Headaches Cardiovascular: No: Chest Pain or Discomfort Respiratory: No: Shortness of Breath Gastrointestinal: No: Abdominal Pain Genitourinary: Positive: Other (LEFT GROIN MASS) Musculoskeletal: No: Pain Skin: No Rash Neurologic: No: Weakness Psychiatric: No: Depression Endocrine: No: Polydipsia Hematologic/Lymphatic: No: Easy Bruising Physical Exam Narrative GENERAL: SKIN: Warm and dry. HEAD: Atraumatic. Normocephalic. EYES: Pupils equal and round. No scleral icterus. No injection or drainage. ENT: No nasal bleeding or discharge. Mucous membranes pink and moist. NECK: Trachea midline. No JVD. CARDIOVASCULAR: Regular rate and rhythm. RESPIRATORY: No accessory muscle use. Clear to auscultation. Breath sounds equal bilaterally. GASTROINTESTINAL: Abdomen soft, non-tender, nondistended. LEFT INGUINAL GROIN MASS FIRM, NONFLUCTUANT, NONCELLULITIC MUSCULOSKELETAL: Extremities without clubbing, cyanosis, or edema. No obvious deformities. NEUROLOGICAL: Awake and alert. No obvious cranial nerve deficits. Motor grossly within normal limits. Five out of 5 muscle strength in the arms and legs. Normal speech. PSYCHIATRIC: Appropriate mood and affect; insight and judgment normal. Data Data Last Documented VS Orders Orders Complete Blood Count With Diff (06/27/17 11:10) Basic Metabolic Panel (Bmp) (06/27/17 11:10) Prothrombin Time / Inr (Pt) (06/27/17 11:10) Act Partial Throm Time (Ptt) (06/27/17 11:10) Ct Abd/Pel W Iv Contrast(Rout) (06/27/17 11:10) Iohexol 350 Inj (Omnipaque 350 Inj) (06/27/17 12:39) Electrocardiogram (06/27/17 ) Admit Order (Ed Use Only) (06/27/17 13:37) Labs Laboratory Tests Test 06/27/17 11:42 White Blood Count 6.7 TH/MM3 Red Blood Count 4.33 MIL/MM3 Hemoglobin 13.4 GM/DL Hematocrit 38.3 % Mean Corpuscular Volume 88.4 FL Mean Corpuscular Hemoglobin 31.0 PG Mean Corpuscular Hemoglobin Concent 35.1 % Red Cell Distribution Width 13.0 % Platelet Count 321 TH/MM3 Mean Platelet Volume 7.9 FL Neutrophils (%) (Auto) 65.2 % Lymphocytes (%) (Auto) 25.6 % Monocytes (%) (Auto) 6.5 % Eosinophils (%) (Auto) 2.0 % Basophils (%) (Auto) 0.7 % Neutrophils # (Auto) 4.4 TH/MM3 Lymphocytes # (Auto) 1.7 TH/MM3 Monocytes # (Auto) 0.4 TH/MM3 Eosinophils # (Auto) 0.1 TH/MM3 Basophils # (Auto) 0.0 TH/MM3 CBC Comment DIFF FINAL Differential Comment Prothrombin Time 10.6 SEC Prothromb Time International Ratio 1.0 RATIO Activated Partial Thromboplast Time 26.4 SEC Blood Urea Nitrogen 13 MG/DL Creatinine 0.53 MG/DL Random Glucose 89 MG/DL Calcium Level 9.4 MG/DL Sodium Level 138 MEQ/L Potassium Level 3.9 MEQ/L Chloride Level 105 MEQ/L Carbon Dioxide Level 25.8 MEQ/L Anion Gap 7 MEQ/L Estimat Glomerular Filtration Rate 118 ML/MIN [facility] Medical Decision Making Medical Screen Exam Complete: Yes Emergency Medical Condition: Yes Medical Record Reviewed: Yes Differential Diagnosis CELLULITIS V ABSCESS V HEMATOMA V RECURRENCE OF TUMOR Narrative Course CBC, COAG AND BMP WERE ALL WNL, CT ABD SHOWED SUPERFICIAL MASSES CONCERNINC FOR SARCOMA , DESPITE OF THIS NO E/O METASTASIS. DR COYLE CALLED AND MADE AWARE, HE PLANS ON TAKING PATIENT TO OR FOR DEBULKING/RESECTION PROCEDURE. Diagnosis Primary Impression: Left groin mass Admitting Information Admitting Physician Requests: Observation Scripts Hydrocodone-Acetaminophen ([place]) 7.5-325 mg Tab 1-2 TAB PO Q4H Y for PAIN, #30 TAB 0 Refills Prov: Umberto Coyle MD 06/28/17 Rohan Duff MD Jun 27, 2017 14:07
[2017-06-27] MEDS ORDERED: MORPHINE SULFATE 8 MG/ML INJ IV PUSH PRN (14:30)
[2017-06-27] MEDS ORDERED: ONDANSETRON HCL 4 MG/2 ML VIAL IV PUSH PRN (14:30)
[2017-06-27] MEDS ORDERED: Post-op Orders (for Pharmacy) MISC XX ONE (14:30)
[2017-06-27] MEDS ORDERED: SODIUM CHLORIDE 0.9% FLUSH 5 ML FLUSH IVF PRN (14:30)
[2017-06-27] MEDS ORDERED: NALOXONE HCL 0.4 MG/ML AMP IV PUSH PRN (14:30)
[2017-06-27] MEDS ORDERED: diphenhydrAMINE HCL 50 MG/ML VIAL IVP PRN (14:30)
[2017-06-27 14:44] VITALS: BP 130/84; PULSE 81; RESP 16; O2SAT 97
--- NOTE | 2017-06-27 15:10 | MH ---
cc: RAY GRAHAM M.D. DATE OF ADMISSION: 06/27/2017 REASON FOR ADMISSION Recurrent abdominal wall tumor. HISTORY OF PRESENT ILLNESS The patient is a 57-year-old female who had a previous history of tumor resected in February of this year and developed swelling in the groin area in the last few weeks. This has become progressively worse with increasing pain. The patient has had no change in bowel habits or anything else. She underwent attempted aspiration and was noted to have mostly bloody material. CT scan was obtained which demonstrates a large multiloculated mass consistent with neoplastic recurrence. 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 PAST MEDICAL HISTORY 1. 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 2. 2, para 2. She had C-sections x2, the last 28 years ago. SOCIAL HISTORY She drinks wine occasionally, does not smoke or use other substances. ALLERGIES She has no known allergies. MEDICATIONS No active medications. REVIEW OF SYSTEMS Negative except as stated in the history of present illness. CONSTITUTIONAL: No fever. EYES: No visual changes or blurry vision. ENT: No headaches. CARDIOVASCULAR: No chest pain or discomfort. RESPIRATORY: No shortness of breath. GI: No abdominal pain, diarrhea, nausea or vomiting. : Significant for a groin mass. MUSCULOSKELETAL: No pain other than right shoulder. SKIN: No rashes, ulcers or lesions. NEUROLOGIC: No weakness, dizziness or diplopia. PSYCHIATRIC: No depression. ENDOCRINE: No heat or cold intolerance. HEMATOLOGIC: No easy bruising. PHYSICAL EXAMINATION GENERAL: A female in no acute distress. VITAL SIGNS: BP 159/86, pulse 75, respirations 18, 100% saturation on room air, temperature 98.7. HEENT: Sclera anicteric. Pupils reactive. CHEST: Clear to auscultation. CARDIAC: Regular rate and rhythm without murmurs. ABDOMEN: Soft and nontender. LEFT GROIN: In the left groin there is an approximately 10 x 15 cm and 4 x 8 cm area of mass effect that is not fluctuant. There is no associated adenopathy. EXTREMITIES: Pulses are present. NEUROLOGIC: Nonfocal. LABORATORY WBC 6.7. BUN and creatinine are 13 and 0.53, potassium 3.9. ASSESSMENT AND PLAN Recurrent neuroendocrine tumor. I have discussed this with my partner who is a surgical oncologist and he agrees that re-resection urgently is appropriate. Once this has been accomplished, if negative margins can be achieved that is desirable; she may be a candidate for radiation and chemotherapy given the aggressive nature of the tumor at this point. I have discussed the risks of the procedure with the patient and her including but not limited to bleeding and infection as well as the risk of recurrence. I have discussed remedies consequences, alternatives and convalescence; they vocalize understanding and agree to proceed. I will obtain radiation oncology and medical oncology consultations while the patient is still in the hospital. MD ABHILASH Marie/SAHARA /2:33 PM /2:50 PM
[2017-06-27] MEDS ORDERED: ACETAMINOPHEN 1000 MG/100 ML 100 ML IV ONE (15:56)
[2017-06-27] MEDS ORDERED: POVIDONE IODINE 5% (ANTISEPSIS KIT) 4 APPLICATIONS EACH NARE PRN (16:00)
[2017-06-27] MEDS ORDERED: METOPROLOL TARTRATE 25 MG TAB PO PRN (16:00)
[2017-06-27] MEDS ORDERED: SODIUM CHLORID 0.9% 500 ML IV PRN (16:00)
[2017-06-27] MEDS ORDERED: INSULIN HUMAN REGULAR 1,000 UNITS/10 ML VIAL SQ PRN (16:00)
[2017-06-27] MEDS ORDERED: CHLORHEXIDINE GLUCONATE 2 % 1 PACK (2 CLOTHS) TOPICAL PRN (16:00)
[2017-06-27] MEDS ORDERED: LACTATED RINGER'S 1000 ML IV PRN (16:00)
[2017-06-27] MEDS ORDERED: ceFAZolin INJ 1,000 MG VIAL ONE (16:03)
[2017-06-27] MEDS ORDERED: BUPIVACAINE/EPINEPHRINE 0.5% 50 ML VIAL ONE (17:46)
[2017-06-27] MEDS ORDERED: DO NOT ADM ANY ANTICOAGULANT DRUGS PRN (18:08)
--- NOTE | 2017-06-27 18:11 | HHI.PR ---
cc: Umberto Coyle MD Immediate Post Op Note Procedure Date: Jun 27, 2017 Pre Op Diagnosis: Groin mass with hematoma Post Op Diagnosis: Recurrent sarcoma with hematoma Surgeon: Umberto Coyle Toggle Press Operator(s): Kenya Awad CST Procedure: Excision 9 x 16 cm recurrent sarcoma with muscle and fascia Findings: Tumor extending into fascia and muscle medially Complications: None Specimen(s) removed: 9 x 16 cm recurrent soft tissue mass with necrotic tissue and blood Estimated blood loss: 600 ml Anesthesia: General Drains: AARON IVF (1800 ml) Patient to: PACU Patient Condition: Good Date/Time of Procedure: SEE SURGICAL CARE RECORD Umberto Coyle MD Jun 27, 2017 18:11
[2017-06-27] MEDS: D5-NS + KCL 20 MEQ INJ 1,000 ML IV SCH (18:29)
[2017-06-27 18:38] LABS: HEMATOCRIT 32.1 % (35.0-46.0); MEAN CORPUSCULAR HEMOGLOBIN 31.3 PG (27.0-34.0); MEAN CORPUSCULAR HGB CONC 35.6 % (32.0-36.0); PLATELET COUNT 306 TH/MM3 (150-450); RED BLOOD COUNT 3.65 MIL/MM3 (4.00-5.30); REVIEW FLAG FINAL; WHITE BLOOD COUNT 9.4 TH/MM3 (4.0-11.0)
[2017-06-27] MEDS ORDERED: ACETAMINOPHEN/HYDROcodone 325 MG/7.5 MG TAB PO PRN ×2 (19:30)
[2017-06-27 20:00] VITALS: BP 117/73; PULSE 59; RESP 22; TEMP 96.1; O2SAT 100
[2017-06-27] MEDS: SODIUM CHLORIDE 0.9% FLUSH 5 ML FLUSH IVF SCH (21:00)
[2017-06-27 21:44] VITALS: O2SAT 100
[2017-06-28] VITALS (7 sets, daily range): BP systolic 93–109; BP diastolic 56–69; PULSE 64–77; RESP 16–20; TEMP 96.9–98.4; O2SAT 94–97
[2017-06-28] MEDS: D5-NS + KCL 20 MEQ INJ 1,000 ML IV SCH ×4 (03:14→22:05)
[2017-06-28 09:00] LABS: HEMATOCRIT 28.4 % (35.0-46.0); MEAN CORPUSCULAR HEMOGLOBIN 31.6 PG (27.0-34.0); MEAN CORPUSCULAR HGB CONC 35.5 % (32.0-36.0); PLATELET COUNT 263 TH/MM3 (150-450); REVIEW FLAG FINAL; WHITE BLOOD COUNT 9.2 TH/MM3 (4.0-11.0)
[2017-06-28] MEDS: SODIUM CHLORIDE 0.9% FLUSH 5 ML FLUSH IVF SCH ×2 (09:00→21:00)
--- NOTE | 2017-06-28 11:27 | MP ---
cc: RAY COYLE M.D. DATE OF SURGERY: 06/27/2017 PROCEDURE Excision 9 x 16 cm mass including fascia and muscle from the groin. PREOPERATIVE DIAGNOSIS Expanding mass in groin suspicious for hematoma. POSTOPERATIVE DIAGNOSIS Recurrent tumor with necrosis and hemorrhage. ANESTHESIA General endotracheal. SURGEON Dr. Coyle. ESTIMATED BLOOD LOSS 600 mL. FLUIDS 1800 mL crystalloid. COMPLICATIONS None. DRAINS AARON x1. SPECIMEN 9 x 16 cm mass to pathology. PROCEDURE IN DETAIL The patient was taken to the operating room and placed on the operating table in the supine position. After an adequate level of general endotracheal anesthesia was achieved the groin was shaved, prepped and draped. Time-out was taken confirming the correct patient, site and procedure to be performed. Incision was made over the patient's previous incision and dissection carried down to the area where hematoma was noted. This was suctioned and the patient was found to have necrotic tumor. Attempt was made to gain an area of dissection beyond the tumor to try to obtain a negative margin. This was partially successful in that dissection could be carried around the tumor superiorly and inferiorly. The deep margin was at the external oblique fascia during the resection last time, but it was felt that this needed to be removed in order to obtain a reasonable deep margin. Fascia and muscle was removed allowing for excision of the tumor in a lateral to medial fashion. Care was taken to stay external to the femoral vessels and the femoral sheath was not entered. Dissection was carried out in the left labia and tumor was excised from the subcutaneous tissues in this area. Dissection was carried down to the symphysis pubis and tumor and fascia were were peeled off of the symphysis. The specimen was submitted and all bleeding was meticulously controlled with either electrocautery or suture ligation. Three grams of Jayro powder was sprinkled into the operative field. A Derick channel drain was brought out via separate stab incision superior to the incision site and fixed to the skin with a 3-0 Nylon suture. 30 mL of 0.5% Marcaine with epinephrine was injected into the fascial tissues and the fascia partially closed with 0 PDS suture. Interrupted PDS was utilized to close the fascia so that the patient would be less likely to have a hernia long-term. When this was completed, the wound was closed in two layers with interrupted 2-0 Vicryl suture and 5-0 PDS in a running subcuticular fashion. The wound was dressed with Steri-Strips. The patient was extubated and taken back to the recovery room in stable condition. Sponge, needle and instrument counts were reported to be correct. The patient tolerated the procedure well. MD ABHILASH Marie/TLGreg /7:45 PM /11:08 AM AFIA
--- NOTE | 2017-06-28 15:02 | EKG ---
Date Performed: 06/27/2017 Time Performed: 14:18:25 PTAGE: 57 years EKG: Sinus rhythm INCOMPLETE RIGHT BUNDLE BRANCH BLOCK BORDERLINE ECG PREVIOUS TRACING : 01/19/2017 23.23 Compared to prior tracing no significant change DOCTOR: Sherin Arreaga Interpretating Date/Time 06/28/2017 14:55:42
--- NOTE | 2017-06-28 17:54 | HHI.PR ---
Subjective Subjective Notes Patient was nauseous this morning; better now. Objective Vitals/I&O Vital Signs Date Time Temp Pulse Resp B/P (MAP) Pulse Ox O2 Delivery O2 Flow Rate FiO2 06/28/17 16:00 97.6 71 16 93/56 (68) 96 06/28/17 08:05 21 06/27/17 18:45 Room Air 06/27/17 18:30 2 Labs Laboratory Tests Test 06/27/17 18:30 06/28/17 07:02 White Blood Count 9.4 9.2 Red Blood Count 3.65 3.20 Hemoglobin 11.4 10.1 Hematocrit 32.1 28.4 Mean Corpuscular Volume 88.0 89.0 Mean Corpuscular Hemoglobin 31.3 31.6 Mean Corpuscular Hemoglobin Concent 35.6 35.5 Red Cell Distribution Width 13.0 13.0 Platelet Count 306 263 Mean Platelet Volume 7.3 8.2 Lungs: Clear Abdomen: Non-distended, Post-op tenderness Narrative Exam AARON output serosanguinous, A/P Assessment and Plan POD #1 Re-excision groin mass AARON output serosanguinous, decreasing Remove rasmussen in AM Recheck Hb/Hct Possible D/C tomorrow Umberto Coyle MD Jun 28, 2017 17:54
[2017-06-28] MEDS ORDERED: HYDR-3288 PO (17:55)
--- NOTE | 2017-06-28 20:32 | MB ---
cc: TATO TOWNSEND M.D.,RAY Beltre MD DATE OF CONSULTATION 06/28/17 DATE OF 1960 REASON FOR CONSULTATION This is a 57-year-old female having had a recent resection of an extensive mass involving the left prepubic area. BRIEF HISTORY This is a charming 57-year-old female who initially grew up in [place]. She is accompanied by her sister and her . She gives a history of noticing a small lump in her left groin region which did not dissipate with antibiotics. As it continued to grow, she was seen by Dr. Coyle in January of 2017. She was admitted to the hospital and had a resection of this mass. The pathology at that time was noted to be a high-grade malignant neoplasm most consistent with neuroendocrine carcinoma. The mass measured approximately 9 x 2 cm. The tumor was noted to be pleomorphic. The morphology and immunophenotype findings were consistent with a high-grade neuroendocrine carcinoma possibly of metastatic origin. Unfortunately, over the past several months this lesion has continued to enlarge. When she was admitted to the hospital on this occasion, a CT scan of the abdomen and pelvis was performed. This documented an area with multiple lesions in the left inguinal region with a total diameter of 14.2 cm. This extended to the midline involving the mons and possibly the left vaginal labia. There was no intrapelvic or abdominal disease. On June 27, she went on to have a surgical resection of this lesion performed and the pathology is still pending at this time. I have discussed the surgery with Dr. Coyle and he has reported what he believes is a complete excision. There is no vascular involvement and he feels he was able to narrowly get around the tumor. This lady reports no leg edema. She had some discomfort with this mass, but no pain per se and otherwise no symptoms. She has had no fever, sweats or weight loss. She denies any bladder symptoms. She has had no vaginal bleeding and she has no rectal bleeding. PAST MEDICAL AND SURGICAL HISTORY Some history of arthritis. She is 2, para 2. . FAMILY HISTORY AND SOCIAL HISTORY Today she is accompanied by her and sister. She has two children. ALLERGIES None known. MEDICATIONS Denies home medications. REVIEW OF SYSTEMS Full system review has been well documented in the hospital chart, but she denies cardiovascular, respiratory, eye, ears, nose or throat, GI, , musculoskeletal, hematologic, neurologic, endocrine or other specific complaints apart from those noted in the history. PHYSICAL EXAMINATION GENERAL: Brief exam today reveals an alert, oriented female in no immediate distress, although she does have some postoperative discomfort as expected. HEENT: There was no jaundice. Head exam was normal. NECK: Exam was normal. LUNGS: Lung hutson were clear. CARDIAC: Heart sounds were normal. ABDOMEN: There were no abdominal masses or tenderness. GENITOURINARY: She has a dressing over her left high inguinal region. EXTREMITIES: There is no ankle edema. DISCUSSION In review of data today, I have had the opportunity to review this lady's diagnostic imaging. She has had a CT scan of her abdomen and pelvis on both of her hospital admissions. There is no evidence of intra-abdominal disease. She has not had a CT of her chest, which would be appropriate in this setting. We will need to wait for the final pathology. There is a suggestion that this may be a sarcoma and this would require a local postoperative radiation treatment as adjuvant to the resection if she has complete margins negative. If her margins are positive, we would have to consider whether further surgery should be performed first. If this is indeed a neuroendocrine tumor, then she would likely benefit from a combination of radiation treatment and chemotherapy because of the metastatic potential in that setting. We will continue to follow her while in the hospital. If she is discharged over the weekend, we will also see her on an outpatient basis. Thank you again. MD NAHUM Little/ /6:19 PM /8:18 PM
[2017-06-29 00:23] VITALS: BP 99/67; PULSE 80; RESP 16; TEMP 98.2; O2SAT 98
[2017-06-29] MEDS: D5-NS + KCL 20 MEQ INJ 1,000 ML IV SCH ×2 (05:42→13:26)
[2017-06-29 05:56] LABS: HEMATOCRIT 29.9 % (35.0-46.0); REVIEW FLAG FINAL
[2017-06-29 07:56] VITALS: O2SAT 96
[2017-06-29 08:00] VITALS: BP 112/70; PULSE 70; RESP 17; TEMP 97.3; O2SAT 96
[2017-06-29] MEDS: SODIUM CHLORIDE 0.9% FLUSH 5 ML FLUSH IVF SCH ×2 (09:00→19:52)
[2017-06-29 12:00] VITALS: BP 107/67; PULSE 69; RESP 17; TEMP 96.9; O2SAT 100
--- NOTE | 2017-06-29 15:44 | HHI.PR ---
Subjective Subjective Notes Painful when she gets out of bed Objective Vitals/I&O Vital Signs Date Time Temp Pulse Resp B/P (MAP) Pulse Ox O2 Delivery O2 Flow Rate FiO2 06/29/17 12:00 96.9 69 17 107/67 (80) 100 06/29/17 07:56 21 06/27/17 18:45 Room Air 06/27/17 18:30 2 Labs Laboratory Tests Test 06/29/17 05:02 Hemoglobin 10.1 Hematocrit 29.9 Abdomen: Non-distended, Non-tender Narrative Exam AARON output serosanguinous, 37 ml A/P Assessment and Plan POD #2 Re-excision groin mass AARON output serosanguinous, decreasing Minimal pain, except when getting out of bed Plan: Remove janet rasmussen IVF D/C tomorrow Umberot Coyle MD Jun 29, 2017 15:44
--- NOTE | 2017-06-29 15:48 | HHI.DS ---
Discharge Summary Admission Date Jun 27, 2017 at 13:40 Admitting Diagnosis LEFT INGUINAL/PUBIC MASSES MALIGNANT Brief History Admitted 06/27 for enlarging mass in groin; underwent excision later same day after imaging showed tumor recurrence. CBC/BMP: 06/29/17 0502 06/27/17 1142 Significant Findings Laboratory Tests Test 06/27/17 11:42 06/27/17 18:30 06/28/17 07:02 06/29/17 05:02 Red Blood Count 3.65 MIL/MM3 (4.00-5.30) 3.20 MIL/MM3 (4.00-5.30) Hemoglobin 11.4 GM/DL (11.6-15.3) 10.1 GM/DL (11.6-15.3) 10.1 GM/DL (11.6-15.3) Hematocrit 32.1 % (35.0-46.0) 28.4 % (35.0-46.0) 29.9 % (35.0-46.0) PE at Discharge AARON output serosanguinous, 37 ml Hospital Course Patient had significant AARON output first night; decreased substantially over last 24 hrs. Tolerating diet with minimal pain; uncomfortable when getting in and out of bed. Pt Condition on Discharge: Good Discharge Disposition: Discharge Home Discharge Instructions DIET: Follow Instructions for: As Tolerated, No Restrictions Activities you can perform: Shower Only-No Bath Activities to Avoid: Strenuous Activity Umberto Coyle MD Jun 29, 2017 15:48
[2017-06-29 16:00] VITALS: BP 117/73; PULSE 72; RESP 17; TEMP 97.2; O2SAT 98
--- NOTE | 2017-06-29 18:27 | MB ---
cc: BRICE LUJAN MD DATE OF CONSULTATION: 06/29/2017. REASON FOR CONSULTATION: Patient with locally recurrent malignancy. She had a previous diagnosis of a high-grade neuroendocrine tumor involving the subcutaneous tissues of the lower anterior abdominal wall. CHIEF COMPLAINT: Growing tumor under the skin of the abdomen. HISTORY OF PRESENT ILLNESS: Ms. Pryor is a very pleasant 57-year-old female. Ms. Pryor reports being in her usual good state of health up until the spring. She began to notice an enlarging nodule in the suprapubic area on the left side. She thought this was an ingrown hair and reported the symptoms to a walk-in clinic. She was put on antibiotics but the lesion continued to enlarge. She therefore presented to [facility] on 01/20/2017 to report these symptoms. She underwent CT scan of the abdomen, and was found to have a solid tumor mass in the subcutaneous area in the in the left inguinal region measuring up to 6 cm. The patient underwent an excisional biopsy on 01/25/[address] Coyle. A 7.5 cm tumor was removed. Pathologic findings were consistent with a high-grade neuroendocrine tumor. This was thought to be metastatic to the skin / subcutaneous area in the inguinal region. CT imaging of the abdomen and pelvis revealed no definite evidence of her primary site. The patient was recommended outpatient oncology evaluation for systemic treatment and further workup but she declined. Over the past several weeks, the patient has noted recurrent masses along the lower anterior abdominal wall. She presented to [facility] for additional for further workup. She did undergo CT scan of the abdomen and pelvis on 06/27/2017 and was noted to have masses / nodules in the subcutaneous tissue of the lower abdomen in the region of the pubis. There appeared to be no evidence of intra-abdominal lesions or metastases. Dr. Coyle reevaluated the patient and performed additional surgical resection on 06/28/2017. The tumors were resected en bloc. The tumor masses measured 9 x 16 cm and resection of the muscle as well as fascia from the groin was removed. Gray-Rico drains were placed. Final pathology is pending. The oncology service has been asked to see her for further management. PAST MEDICAL HISTORY: 1. High-grade neuroendocrine tumor of the subcutaneous tissue of the right inguinal area diagnosed in January of 2017. 2. Arthritis. 3. No history of other oncologic diagnoses. PAST SURGICAL HISTORY: 1. sections x2. 2. excision of subcutaneous left inguinal mass in January of 2017. FAMILY HISTORY: Mother is living. Father is . Parents are both living and in good health. The patient had a son who was diagnosed with Al's sarcoma at the age of 17, and he at the age of 22. SOCIAL HISTORY: The patient is , she lives at home with her . She works in a retail store. She reports being a lifelong nonsmoker. She drinks alcohol only occasionally. She denies any illicit drug use. ALLERGIES: NO KNOWN DRUG ALLERGIES. CURRENT INPATIENT MEDICATIONS: 1. Lactated Ringers at 30 mL/hour. 2. Tylenol / hydrocodone 325 / 7.5 milligrams every 4 hours as needed for pain. 3. Insulin per protocol. 4. Metoprolol 25 milligrams p.o. x1. 5. Zofran 4 milligrams IV q. 4 hours as needed for nausea and vomiting. REVIEW OF SYSTEMS: A thirteen point review of systems was obtained and the following are the pertinent positives: CONSTITUTIONAL: The patient reports fatigue. She denies fevers, chills or night sweats. She reports decreased appetite. HEAD, EYES, EARS, NOSE, THROAT: She denies headaches, blurry vision, difficulty swallowing or soreness of throat. RESPIRATORY: Denies exertional dyspnea, cough, hemoptysis or pleuritic chest pain. CARDIOVASCULAR: Denies angina-like chest pain, PND, orthopnea. GI: Denies nausea, vomiting, diarrhea, hematochezia, melena. : Denies dysuria, hematuria, urinary incontinence. SKIN: She reports noticing multiple masses along the lower portion of her abdomen and pubic area. TREATMENT TECHNICIAN: Denies any focal sensory or motor deficits. PHYSICAL EXAMINATION: VITAL SIGNS: Temperature 97.2 degrees Fahrenheit, heart rate 72 beats per minute, blood pressure 117/73, respiratory rate 17, O2 sats 98% on room air. GENERAL APPEARANCE: Ms. Pryor is a middle-aged female. She short and of thin build, she appears to be in no acute distress and has a pleasant disposition. HEAD, EYES, EARS, NOSE, THROAT: Head is atraumatic, normocephalic. Conjunctivae are non-pale. The sclerae are anicteric. Extraocular muscles intact. Pupils equal, round and reactive to light and accommodation. ORAL EXAM: No pharyngeal erythema. NECK EXAM: No palpable cervical or supraclavicular lymphadenopathy. RESPIRATORY EXAM: Good air movement bilaterally. No added breath sounds. CARDIOVASCULAR EXAM: Regular rate and rhythm. S1, S2. No obvious murmurs, rubs or gallops. ABDOMINAL EXAM: Thin belly. Soft. No palpable organ enlargement. SKIN EXAMINATION: She has no obvious masses noted in the subcutaneous tissues. A clean-appearing surgical incision is noted just superior to the left inguinal area. A Gray-Rico drain is in place. LOWER EXTREMITIES: No pretibial edema. No calf tenderness. TREATMENT TECHNICIAN: No focal sensory or motor deficits. LABORATORY FINDINGS: Blood work dated 06/28/2017: WBC count 9.2, hemoglobin 10.1 gm/dl, hematocrit 28.4%, platelet count 263,000. Chemistries: Sodium 138, potassium 3.9, chloride 105, bicarb 25.8, BUN 13, creatinine 0.53, EGFR 118, calcium 9.4. Pathology: Subcutaneous mass biopsy dated 01/25/2017: 1. High-grade malignant neoplasm most consistent with neuroendocrine carcinoma. Sections demonstrate partially necrotic tumor mass composed of large pleomorphic tumor cells with vesicular nuclei, prominent nucleoli and a rapid mitotic rate. Immunohistochemical studies indicate positivity for synaptophysin, positive for cytokeratin AE #1, AE #3, positive for CAM 5.2 and positive for CD30, negative for S100. IMAGING STUDIES: CT scan of the abdomen and pelvis with contrast dated 06/27/2017: Nodules in the subcutaneous tissues of the lower abdominal wall / mons pubis region show a marked increase in both size and number with extension into the vaginal labia. The findings are very concerning for a neoplastic process such as sarcoma. Despite the extensive local disease, there is no evidence of metastases. Stable renal and hepatic cysts are noted. ASSESSMENT: Ms. Pryor is a 57-year-old female who presents to the hospital with enlarging masses involving the lower left abdominal wall. Imaging study findings indicate multiple masses adjacent to each other in the subcutaneous tissues of the lower abdominal wall. She presented with a smaller lesion in January of 2017 and underwent an excisional biopsy which revealed findings consistent with a high-grade neuroendocrine tumor. There appears to now have been a local recurrence. Interestingly, the CT scan of the abdomen reveals no definite evidence of a primary tumor within the abdomen and pelvis. The oncology service has been asked to see her for further workup and management. The patient has also been evaluated by radiation oncology. Imaging studies of the thorax have not yet been done to rule out a possible intrathoracic primary. RECOMMENDATIONS: 1. High-grade neuroendocrine tumor with local recurrence in the subcutaneous tissues of the left lower abdominal wall: I would like to await final pathology from the most recent excisional biopsies. Based on what our surgeons described and the radiographic appearance on imaging studies, there is a possibility of her underlying diagnosis being that of a soft tissue sarcoma. Complete staging studies with a CT scan of the thorax with IV contrast. 2. I will see her periodically and will discuss potential treatment options once final pathology is reported. MD CATRACHO Stone/TANNA /5:29 PM /6:01 PM
[2017-06-29 20:00] VITALS: BP 122/76; PULSE 85; RESP 18; TEMP 98.9; O2SAT 99
[2017-06-29] MEDS ORDERED: IOHEXOL 350 MG/ML 10 ML VIAL (for RAD DIAG) IVCONTRAST ONE (21:37)
--- NOTE | 2017-06-29 21:56 | RADRPT ---
EXAM DATE/TIME: 06/29/2017 21:25 [facility] COMPARISON: No previous studies available for comparison. INDICATIONS : Neuronendocrine tumor removed from abdominal wall; rule out chest mass. IV CONTRAST: 75 cc Omnipaque 350 (iohexol) IV RADIATION DOSE: 3.42 CTDIvol (mGy) MEDICAL HISTORY : None SURGICAL HISTORY : abdominal mass removed ENCOUNTER: Subsequent ACUITY: 2 days PAIN SCALE: 0/10 LOCATION: chest TECHNIQUE: Volumetric scanning of the chest was performed. Using automated exposure control and adjustment of t he mA and/or kV according to patient size, radiation dose was kept as low as reasonably achievable to obtain optimal diagnostic quality images. DICOM format image data is available electronically for review and comparison. Follow-up recommendations for detected pulmonary nodules are based at a minimum on nodule size and pa tient risk factors according to Fleischner Society Guidelines. FINDINGS: Dependent atelectasis noted in the lungs. No significant lung consolidation. No lung nodules or mass present. There is no hilar, mediastinal axillary adenopathy. No pleural or pericardial effusion. Small hepatic cyst noted in the upper abdomen. CONCLUSION: 1. Negative for metastatic disease to the thorax. Subsegmental atelectasis or scarring in the lungs. No effusion. Jack Helm MD on June 29, 2017 at 21:50 Board Certified Radiologist. This report was verified electronically.
[2017-06-30 00:06] VITALS: BP 114/75; PULSE 75; RESP 18; TEMP 98.7; O2SAT 99
[2017-06-30 08:00] VITALS: BP 117/72; PULSE 74; RESP 17; TEMP 97.8; O2SAT 100
[2017-06-30] MEDS: SODIUM CHLORIDE 0.9% FLUSH 5 ML FLUSH IVF SCH (09:40)
[2017-06-30 12:00] VITALS: BP 119/83; PULSE 86; RESP 17; TEMP 97.3; O2SAT 100
--- NOTE | 2017-06-30 13:40 | HHI.PR ---
Subjective Subjective Notes feels well, wants to go home Objective Vitals/I&O Vital Signs Date Time Temp Pulse Resp B/P (MAP) Pulse Ox O2 Delivery O2 Flow Rate FiO2 06/30/17 12:00 97.3 86 17 119/83 (95) 100 06/29/17 07:56 21 06/27/17 18:45 Room Air 06/27/17 18:30 2 Abdomen: Non-distended, Post-op tenderness Narrative Exam AARON drain clear A/P Assessment and Plan 57yo female s/p resection of abdominal wall mass, stable. pain ok, AARON drain teaching done ok to DC home today Zackery Jones MD Jun 30, 2017 13:40
== END 2017-06-30 15:08 | disposition home or self-care (01) | DRG 465 ==
LOC: NEPE 10:10 → NEDA 13:40 → N07B 18:55
PROVIDERS: ADMIT Surgery Trauma Surgery; ATTEND Surgery Trauma Surgery
PROC: 0JBC0ZZ Excision of Pelvic Region Subcutaneous Tissue and Fascia, Open Approach (ICD-10-PCS; principal; 2017-06-27 15:56)
DX: C49.5 Malignant neoplasm of connective and soft tissue of pelvis (principal); M19.011 Primary osteoarthritis, right shoulder; Z85.831 Personal history of malignant neoplasm of soft tissue
CPT/HCPCS: 71260; 74177; 80048; 85014; 85018; 85025; 85027; 85610; 85730; 86850; 86900; 86901; 86920; 88305; 88341; 88342; 93005; J0131; J0690; J2370; J2405; J2710; J3010; J3480; J7120; Q9967